=== PATIENT | female | born 1980 | race Caucasian/White ===

== ENCOUNTER → 2017-05-26 | Outpatient (CLI) | payer BC ==
[~2017-05-26] MED LIST: RXTOBROPSO OP
== END ==
LOC: LAB 16:40
DX: Z00.00 Encounter for general adult medical examination without abnormal findings (principal)
CPT/HCPCS: 86706

== ENCOUNTER → 2020-03-29 | Outpatient (CLI) | payer BC ==
[2020-03-30 14:08] LABS: HPV 16 Negative (Negative); HPV 18 Negative (Negative); HPV OTHER HR TYPES Negative (Negative)
== END | disposition home or self-care (01) ==
LOC: LAB 14:26 → LAB SHORT 14:26
PROVIDERS: Obstetrics & Gynecology
DX: Z12.4 Encounter for screening for malignant neoplasm of cervix (principal)
CPT/HCPCS: 87624; G0123

== ENCOUNTER → 2023-06-25 | Outpatient (CLI) | payer BC ==
[2023-06-25 19:08] LABS: BASOPHILS ABSOLUTE AUTO 0.04 K/mm3 (0.00-0.23); BASOPHILS PERCENT AUTO 0 % (0-2); EOSINOPHILS ABSOLUTE AUTO 0.26 K/mm3 (0.00-0.68); EOSINOPHILS PERCENT AUTO 2 % (0-6); Hematocrit 42.6 % (33.0-51.0); Hemoglobin 14.5 g/dL (11.5-16.0); IMMATURE GRAN ABSOLUTE AUTO 0.02 K/mm3 (0.00-0.10); IMMATURE GRAN PERCENT AUTO 0 % (0-1); LYMPHOCYTES ABSOLUTE AUTO 2.66 K/mm3 (0.84-5.20); LYMPHOCYTES PERCENT AUTO 24 % (21-46); MONOCYTES ABSOLUTE AUTO 0.72 K/mm3 (0.16-1.47); MONOCYTES PERCENT AUTO 7 % (4-13); Mean Corpuscular HGB 29.5 pg (26.0-34.0); Mean Corpuscular Volume 87 fL (80-100); Mean Platelet Volume 11.4 fL (9.1-12.4); NEUTROPHILS ABSOLUTE AUTO 7.37 K/mm3 (1.96-9.15); NEUTROPHILS PERCENT AUTO 67 % (41-73); Platelet Count 245 K/mm3 (150-400); RDW Coefficient Variation 12.7 % (11.7-14.2); RDW Standard Deviation 39.8 fL (35.1-46.3); Red Blood Cell Count 4.91 M/mm3 (3.80-5.20); White Blood Cell Count 11.07 K/mm3 (4.00-11.30)
[2023-06-25 19:33] LABS: CHOL/HDL RATIO 2.8; Cholesterol 157 mg/dL (50-200); Free Thyroxine 1.05 ng/dL (0.70-1.60); HDL Cholesterol 56 mg/dL (>39); LDL/HDL RATIO 1.5; Low Density Lipoprotein Chol 83 mg/dL (0-110); Triglycerides 88 mg/dL (30-160); Very Low Density Lipoprot Chol 17 mg/dL (6-32)
[2023-06-25 19:34] LABS: Thyroid Stimulating Hormone <0.005 uIU/mL (0.360-4.800)
[2023-06-27 09:11] LABS: A/G RATIO 2.8 (1.2-2.2); BILIRUBIN, TOTAL 0.9 mg/dL (0.0-1.2); CALCIUM, SERUM 9.2 mg/dL (8.7-10.2); CREATININE, SERUM 0.81 mg/dL (0.57-1.00); GLOBULIN, TOTAL 1.7 g/dL (1.5-4.5); POTASSIUM, SERUM 3.7 mmol/L (3.5-5.2); PROTEIN, TOTAL, SERUM 6.4 g/dL (6.0-8.5)
[2023-06-28 11:52] LABS: TRIIODOTHYRONINE,TOTAL T3 TTL 208 ng/dL (80-200)
== END | disposition home or self-care (01) ==
LOC: LAB SHORT 17:05 → LAB 17:05
PROVIDERS: Family Medicine
DX: Z00.00 Encounter for general adult medical examination without abnormal findings (principal); Z13.1 Encounter for screening for diabetes mellitus; Z13.220 Encounter for screening for lipoid disorders; Z13.29 Encounter for screening for other suspected endocrine disorder; N94.6 Dysmenorrhea, unspecified; N95.1 Menopausal and female climacteric states
CPT/HCPCS: 80053; 80061; 83001; 83036; 84439; 84443; 84480; 85025

== ENCOUNTER 2024-01-30 06:07 | Day surgery (SDC) | payer BC, OTHER ==
[~2024-01-30] VITALS: Ht 157.5 cm; Wt 64.4 kg
[2024-01-30] VITALS (16 sets, daily range): BP systolic 102–120; BP diastolic 63–88
[2024-01-30] MEDS ORDERED: Lactated Ringer's 1,000 ML IV SCH ×2 (06:30→09:30)
[2024-01-30] MEDS ORDERED: CeFAZolin Sodium 2,000 MG in NS 100 ML IV SCH (06:30)
[2024-01-30] MEDS ORDERED: FentaNYL Citrate 50 MCG/ML 2 ML Injection ONE ×3 (07:14→09:35)
[2024-01-30] MEDS ORDERED: propofoL 20 ML IV ONE (07:14)
[2024-01-30] MEDS ORDERED: Rocuronium Bromide 10 MG/ML 5ML Injection IV ONE ×2 (07:15→08:49)
[2024-01-30] MEDS ORDERED: Dexamethasone Sod Phos 10 MG/ML 1ML VIAL ONE (07:15)
[2024-01-30] MEDS ORDERED: Ondansetron HCl 2 MG / ML 2ML Vial ONE ×2 (07:15→10:01)
[2024-01-30] MEDS ORDERED: Bupivacaine 0.5% HCl 5 MG/ML 30MLVIAL ONE (07:17)
[2024-01-30] MEDS ORDERED: EpiNEPhrine 1 MG/1 ML 1ML Vial ONE (07:26)
[2024-01-30] MEDS ORDERED: Lidocaine HCl 2% 20 ML MDV ONE (07:27)
[2024-01-30] MEDS ORDERED: Midazolam HCl 1MG / ML 2ML Vial ONE (07:31)
--- NOTE | 2024-01-30 08:22 | NUR ---
01/30/24 0822 Graciela Moss BUPIVACAINE 0.5% WAS MIXED WITH EPINEPHRINE BY TO CREATE A MIXTURE OF BUPIVACAINE 0.5% WITH EPINEPHRINE 1:200,000. MIXTURE WAS POURED ONTO THE STERILE FIELD.
[2024-01-30] MEDS ORDERED: Glycopyrrolate 0.2 MG/ML 5ML VIAL ONE (09:11)
[2024-01-30] MEDS ORDERED: Neostigmine Methylsulfate 5MG/5ML SYR ONE (09:11)
[2024-01-30] MEDS ORDERED: Ketorolac Tromethamine 30mg Vial ONE (09:13)
[2024-01-30] MEDS ORDERED: OxyCODONE HCL 5 MG TAB PO PRN (09:30)
[2024-01-30] MEDS ORDERED: Ondansetron HCl 2 MG / ML 2ML Vial IV PRN (09:30)
[2024-01-30] MEDS ORDERED: Acetaminophen 325 MG TABLET PO PRN (09:30)
[2024-01-30] MEDS ORDERED: Ibuprofen 400 MG Tab PO PRN (09:35)
[2024-01-30] MEDS ORDERED: FentaNYL Citrate 50 MCG/ML 2 ML Injection IV PRN (09:35)
[2024-01-30] MEDS ORDERED: DiphenhydrAMINE HCL 25 MG Cap PO PRN (09:35)
--- NOTE | 2024-01-30 10:41 | NUR ---
PT ARRIVED TO SURGICAL FLOOR VIA GOURNEY. A&OX4. VSS. LAP SITE X3 WITH MIN DRAINAGE DRIED AND CLOSED WITH STERI STRIPS. PERIPAD IN PLACE WITH MIN VAGINAL BLEEDING. SNACKS AND WATER AT BEDSIDE. CALL LIGHT WITHIN REACH. AT BEDSIDE.
[2024-01-30] MEDS ORDERED: Ketorolac Tromethamine 30mg Vial IV SCH (12:00)
[2024-01-30 12:29] LABS: BASOPHILS ABSOLUTE AUTO 0.03 K/mm3 (0.00-0.23); BASOPHILS PERCENT AUTO 0 % (0-2); EOSINOPHILS ABSOLUTE AUTO 0.01 K/mm3 (0.00-0.68); EOSINOPHILS PERCENT AUTO 0 % (0-6); Hematocrit 36.5 % (33.0-51.0); Hemoglobin 12.3 g/dL (11.5-16.0); IMMATURE GRAN ABSOLUTE AUTO 0.03 K/mm3 (0.00-0.10); IMMATURE GRAN PERCENT AUTO 0 % (0-1); LYMPHOCYTES PERCENT AUTO 5 % (21-46); MONOCYTES ABSOLUTE AUTO 0.24 K/mm3 (0.16-1.47); MONOCYTES PERCENT AUTO 2 % (4-13); Mean Corpuscular HGB 29.4 pg (26.0-34.0); Mean Corpuscular HGB Conc 33.7 g/dL (31.5-36.5); Mean Corpuscular Volume 87 fL (80-100); Mean Platelet Volume 11.4 fL (9.1-12.4); NEUTROPHILS PERCENT AUTO 92 % (41-73); Platelet Count 153 K/mm3 (150-400); RDW Coefficient Variation 13.4 % (11.7-14.2); Red Blood Cell Count 4.19 M/mm3 (3.80-5.20); White Blood Cell Count 11.91 K/mm3 (4.00-11.30)
[2024-01-30] MEDS ORDERED: Percocet 5-3251 EACH PO (13:55)
[2024-01-30] MEDS ORDERED: IBUP800 PO (13:56)
--- NOTE | 2024-01-30 14:13 | NUR ---
DISCHARGE PT EDUCATED ON AND RECEIVED PRINTED DISCHARGE INSTRUCTIONS. PT VERBALIZED AN UNDERSTANDING. IV DC'D. PT MENDY PO, AMBULATING INDEP IN ROOM, VOIDING SPONTANEOUSLY, AND HAS DECLINED NEED FOR ORAL PAIN MEDS. HARD RX FOR PERCOCET + MOTRIN GIVEN TO PT. PT GATHERING PERSONAL BELONGINGS AND AT SIDE FOR SUPPORT. PT TO BE W/C OUT TO VEHICLE.
== END 2024-01-30 15:27 | disposition home or self-care (01) ==
LOC: ORSCMMR 06:07 → ORD 07:30 → ORSCMMR 07:30 → ORD 08:00 → ORSCMMR 08:00 → SURS 10:32 → ORSCMMR 15:27
PROVIDERS: Obstetrics & Gynecology
PROC: 0UT7FZZ Resection of Bilateral Fallopian Tubes, Via Natural or Artificial Opening With Percutaneous Endoscopic Assistance (ICD-10-PCS; principal; 2024-01-30 07:30)
PROC: 0UT9FZZ Resection of Uterus, Via Natural or Artificial Opening With Percutaneous Endoscopic Assistance (ICD-10-PCS; principal; 2024-01-30 07:30)
PROC: 0UT2FZZ Resection of Bilateral Ovaries, Via Natural or Artificial Opening With Percutaneous Endoscopic Assistance (ICD-10-PCS; principal; 2024-01-30 07:30)
DX: N92.1 Excessive and frequent menstruation with irregular cycle (principal); R93.89 Abnormal findings on diagnostic imaging of other specified body structures; N94.6 Dysmenorrhea, unspecified; D25.9 Leiomyoma of uterus, unspecified; F17.210 Nicotine dependence, cigarettes, uncomplicated
CPT/HCPCS: 36415; 85025; 86850; 86900; 86901; 88307; J0171; J0690; J1100; J1885; J2250; J2405; J2704; J2710; J3010; J7120

== ENCOUNTER → 2025-04-08 | Outpatient (CLI) | payer OTHER ==
[~2025-04-08] MED LIST changes: +IBUP800 PO; +Percocet 5-3251 EACH PO
[2025-04-08 11:04] LABS: BASOPHILS ABSOLUTE AUTO 0.04 K/mm3 (0.00-0.23); BASOPHILS PERCENT AUTO 1 % (0-2); EOSINOPHILS ABSOLUTE AUTO 0.30 K/mm3 (0.00-0.68); EOSINOPHILS PERCENT AUTO 5 % (0-6); Hematocrit 43.5 % (33.0-51.0); Hemoglobin 14.3 g/dL (11.5-16.0); IMMATURE GRAN ABSOLUTE AUTO 0.01 K/mm3 (0.00-0.10); IMMATURE GRAN PERCENT AUTO 0 % (0-1); LYMPHOCYTES ABSOLUTE AUTO 2.31 K/mm3 (0.84-5.20); LYMPHOCYTES PERCENT AUTO 35 % (21-46); MONOCYTES ABSOLUTE AUTO 0.48 K/mm3 (0.16-1.47); MONOCYTES PERCENT AUTO 7 % (4-13); Mean Corpuscular HGB Conc 32.9 g/dL (31.5-36.5); Mean Corpuscular Volume 91 fL (80-100); NEUTROPHILS ABSOLUTE AUTO 3.51 K/mm3 (1.96-9.15); NEUTROPHILS PERCENT AUTO 53 % (41-73); NRBC ABSOLUTE 0.00 K/mm3 (0.00-0.02); NRBC Auto 0.0 /100 WBC (0.0-0.2); Platelet Count 221 K/mm3 (150-400); RDW Coefficient Variation 12.6 % (11.7-14.2); RDW Standard Deviation 41.8 fL (35.1-46.3)
[2025-04-08 12:11] LABS: Alanine Aminotransfer (ALT/SGP 31 U/L (12-78); Albumin, Blood 4.3 g/dL (3.4-5.0); Albumin/Globulin Ratio 1.4 (0.8-1.8); Anion Gap 10 mmol/L (3-11); Aspartate Aminotrans (AST/SGOT 18 U/L (12-37); Bilirubin, Total 0.6 mg/dL (0.1-1.0); Blood Urea Nitrogen 15 mg/dL (8-24); CHOL/HDL RATIO 2.3; CO2, Blood 26 mmol/L (21-32); Calcium, Blood 8.9 mg/dL (8.5-10.1); Chloride, Blood 107 mmol/L (98-108); Cholesterol 171 mg/dL (50-200); Creatinine, Blood 0.55 mg/dL (0.40-1.00); Ferritin, Serum 24 ng/mL (8-252); Globulin, Blood 3.1 g/dL (2.2-4.0); Glucose, Blood 87 mg/dL (70-99); HDL Cholesterol 75 mg/dL (>39); LDL/HDL RATIO 1.1; Low Density Lipoprotein Chol 81 mg/dL (0-110); Potassium, Blood 3.8 mmol/L (3.5-5.5); Sodium, Blood 139 mmol/L (136-145); Thyroid Stimulating Hormone <0.005 uIU/mL (0.360-4.800); Total Iron Binding Capacity 337 ug/dL (250-450); Total Protein, Blood 7.4 g/dL (6.4-8.2); Triglycerides 73 mg/dL (30-160); Very Low Density Lipoprot Chol 14 mg/dL (6-32)
== END ==
LOC: LAB SHORT 10:14 → LAB 10:14
PROVIDERS: Family Medicine
DX: Z00.00 Encounter for general adult medical examination without abnormal findings (principal); E53.8 Deficiency of other specified B group vitamins; E55.9 Vitamin D deficiency, unspecified; E61.1 Iron deficiency; R10.10 Upper abdominal pain, unspecified
CPT/HCPCS: 80053; 80061; 82306; 82607; 82728; 82746; 83036; 83540; 83550; 83690; 84439; 84443; 85025